=== PATIENT | male | born 1945 | race Caucasian/White ===

== ENCOUNTER 2016-12-21 00:22 | Emergency (ER) | payer MEDICARE ==
[2016-12-21 00:30] VITALS: BP 143/73
--- NOTE | 2016-12-21 06:33 | ED ---
Maddy Cowan Michael, scribed for Carmelo Alonso MD on 12/21/16 at 0211 . Complex/Multi-Sys Presentation - HPI Summary HPI Summary: 71 y/o male was BIBA to the ED presenting with general left sided pain that started 2 weeks ago. The pt was unable to describe location of the pain. The pt denies SOB and a mechanical fall. The PMHx is significant for ALS and Parkinson' s disease. The HPI is limited due to level 5 caveat. IF THERE IS ONE, PLEASE SEE DICTATION BY DR. ALONSO FOR FURTHER INFORMATION - History Of Current Complaint Chief Complaint: EDGeneral Time Seen by Provider: 12/21/16 00:34 Hx Obtained From: Patient, EMS, Medical Records Hx From Patient Unobtainable Due To: Altered Mental Status Onset/Duration: Lasting Weeks, Still Present Severity Currently: Mild Severity Initially: Mild Location: Pain At: - general left sided pain Associated Signs And Symptoms: Positive: Other - general left sided pain. Negative: SOB - Allergies/Home Medications Allergies/Adverse Reactions: Allergies Allergy/AdvReac Type Severity Reaction Status Date / Time No Known Allergies Allergy Verified 10/02/15 11:37 PMH/Surg Hx/FS Hx/Imm Hx Endocrine/Hematology History: Reports: Hx Anticoagulant Therapy - PLAVIX Denies: Hx Diabetes, Hx Thyroid Disease Cardiovascular History: Denies: Hx Congestive Heart Failure, Hx Hypertension Respiratory History: Reports: Other Respiratory Problems/Disorders - DRY COUGH- STATES RELATED TO PARKINSON'S, DOES DROOL AT TIMES Denies: Hx Asthma, Hx Chronic Obstructive Pulmonary Disease (COPD) GI History: Reports: Hx Gastroesophageal Reflux Disease Denies: Hx Cirrhosis, Hx Crohn's Disease, Hx Gall Bladder Disease, Hx Hiatal Hernia, Hx Ulcer History: Denies: Hx Acute Renal Failure, Hx Benign Prostatic Hyperplasia, Hx Chronic Renal Failure, Hx Dialysis, Hx Kidney Infection, Hx Kidney Stones, Hx Renal Disease Sensory History: Reports: Hx Cataracts, Hx Contacts or Glasses - GLASSES, Hx Vision Problem Denies: Hx Eye Injury, Hx Eye Prosthesis, Hx Glaucoma, Hx Deafness, Hx Hearing Aid, Hx Hearing Problem Opthamlomology History: Reports: Hx Cataracts, Hx Contacts or Glasses - GLASSES , Hx Vision Problem Denies: Hx Eye Injury, Hx Eye Prosthesis, Hx Glaucoma Neurological History: Reports: Other Neuro Impairments/Disorders - PARKINSON'S- DEEP BRAIN STIMULATOR- Denies: Hx Dementia, Hx Developmental Delay, Hx Headaches, Hx Migraine, Hx Seizures, Hx Spinal Cord Injury - Surgical History Surgery Procedure, Year, and Place: surgery to help with shaking d/t parkinsons Hx Anesthesia Reactions: No - Immunization History Date of Tetanus Vaccine: unsure Date of Influenza Vaccine: unsure Infectious Disease History: No Infectious Disease History: Denies: Hx Clostridium Difficile, Hx Hepatitis, Hx Human Immunodeficiency Virus (HIV), Hx of Known/Suspected MRSA, Hx Shingles, Hx Tuberculosis, Hx Known/ Suspected VRE, Hx Known/Suspected VRSA, History Other Infectious Disease, Traveled Outside the [place] in Last 30 Days - Family History Known Family History: Positive: None Family History: No family malignant hyperthermia and anesthesia reaction - Social History Occupation: Retired Lives: [facility] Alcohol Use: None Hx Substance Use: No Substance Use Type: Reports: None Hx Tobacco Use: No Smoking Status (MU): Never Smoked Tobacco Review of Systems - ROS Summary Review of Systems Summary: Limited due to Level 5 caveat Negative: Fever Negative: Shortness Of Breath Positive: Other - left sided pain All Other Systems Reviewed And Are Negative: No Physical Exam - Summary Physical Exam Summary: euro Exam GENERAL: Awake, alert, oriented, no acute distress, very pleasant, normal phonation. 30 second attention span-loses train of though. HEENT: Head is normocephalic, atraumatic, pupils equal round reactive to light, no photophobia, extraocular muscles intact, no facial droop, anicteric sclera, pink conjunctiva, mucous membranes moist, no erythema, no discharge, no lesions , neck is soft, neck is supple, no carotid bruit , trachea is midline, no JVD CARDIAC: Regular rate and rhythm, S1, S2, no rub, no murmur, no gallop, 2+ radial and pedal pulses bilaterally RESPIRATORY: Clear to auscultation bilaterally with no rales, rhonchi, or wheezes, non-tender ABDOMEN: Bowel sounds positive, no bruit, soft non-tender, no CVA tenderness EXTREMITIES: No edema, warm, dry, moving all extremities in a grossly normal manner NEUROLOGICAL: Cranial nerves II through XII intact, four out of five flexor and extensor strength in upper and lower extremities symmetrically, cogwheeling bilat UE. Triage Information Reviewed: Yes Vital Signs On Initial Exam: Initial Vitals Temp Pulse Resp BP Pulse Ox 98.6 F 60 12 143/73 95 12/21/16 00:23 12/21/16 00:23 12/21/16 00:23 12/21/16 00:23 12/21/16 00:23 Vital Signs Reviewed: Yes Diagnostics - Vital Signs Vital Signs Temp Pulse Resp BP Pulse Ox 12/21/16 00:23 98.6 F 60 12 143/73 95 - Laboratory Lab Statement: Any lab studies that have been ordered have been reviewed, and results considered in the medical decision making process. - Radiology CXR Xray Interpretation: No Acute Changes Radiology Interpretation Completed By: ED Physician Complex Multi-Symp Course/Dx - Diagnoses Provider Diagnoses: resolved pain Discharge - Discharge Plan Condition: Critical Disposition: HOME Referrals: Luz Hodge MD [Primary Care Provider] - Additional Instructions: You will follow up with Dr. Hodge within the next 2 days. PLEASE RETURN TO THE EMERGENCY DEPARTMENT FOR NAUSEA, VOMITING, FEVER, PHOTOPHOBIA, CHEST PAIN, OR IF SYMPTOMS WORSEN. The documentation as recorded by the Maddy jiménez Michael accurately reflects the service I personally performed and the decisions made by me, Carmelo Alonso MD.
--- NOTE | 2016-12-21 08:18 | RAD ---
INDICATION: Shortness of breath. COMPARISON: Comparison is made with a prior chest x-ray study from January 14, 2016. TECHNIQUE: A portable view of the chest was obtained. FINDINGS: The heart is within normal limits in size. Note is made of a tortuous ectatic thoracic aorta. The lungs are clear. No pleural effusion is seen. There are electronic devices which project over both hemithoraces with leads are partially visualized and project over the neck. IMPRESSION: NO EVIDENCE FOR ACUTE DISEASE.
== END 2016-12-21 03:03 | disposition home or self-care (01) ==
LOC: ED 00:22
DX: R10.9 Unspecified abdominal pain (principal); G12.21 Amyotrophic lateral sclerosis; G20 Parkinson's disease; Z79.02 Long term (current) use of antithrombotics/antiplatelets; K21.9 Gastro-esophageal reflux disease without esophagitis
CPT/HCPCS: 71010; 99283